=== PATIENT | male | born 1950 | race Hispanic/Latino ===

== ENCOUNTER → 2017-09-04 | Outpatient (CLI) | payer BC ==
--- NOTE | 2017-09-04 14:29 | RAD ---
EXAM DESCRIPTION: Shoulder,Left 2 or More Views CLINICAL HISTORY: M25.512 COMPARISON: None. TECHNIQUE: 4 views left FINDINGS: Degenerative changes are observed in the acromio clavicular joint. The glenohumeral joint is unremarkable. No evidence for fracture or dislocation is seen. 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 Exam is otherwise unremarkable. Electronically signed by: Rupert Castañeda MD 09/04/2017 2:28 PM [facility]
== END | disposition home or self-care (01) ==
LOC: RAD 10:02
PROVIDERS: ATTEND Orthopaedic Surgery
DX: M25.512 Pain in left shoulder (principal)

== ENCOUNTER → 2020-06-07 | Outpatient (CLI) | payer BC ==
--- NOTE | 2020-06-07 20:00 | RAD ---
EXAM DESCRIPTION: Knee,Right Complete CLINICAL HISTORY: 69 years Male, PAIN IN RIGHT KNEE COMPARISON: None. Findings: Four views/radiographs Location: Right knee No acute fracture or dislocation. Moderate medial compartment narrowing. Small scattered osteophytes. Meniscal chondrocalcinosis. Osteopenia. No significant joint effusion. IMPRESSION: No evidence of acute process in the right knee. Electronically signed by: Grant Diaz MD 06/07/2020 7:58 PM CDT
--- NOTE | 2020-06-07 20:05 | RAD ---
EXAM DESCRIPTION: Pelvis CLINICAL HISTORY: 69 years Male, HIP PAIN RIGHT COMPARISON: None. 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 No acute fracture or dislocation. No focal soft tissue swelling. Mild to moderate bilateral hip osteoarthritis. The proximal right femur is incompletely included. IMPRESSION: No acute osseous abnormality identified in the pelvis. Electronically signed by: Grant Diaz MD 06/07/2020 8:04 PM CDT
== END ==
LOC: RAD 09:00
PROVIDERS: ATTEND Orthopaedic Surgery
DX: M25.561 Pain in right knee (principal); M25.551 Pain in right hip